=== PATIENT | male | born 1960 | race Caucasian/White ===

== ENCOUNTER 2020-07-06 13:42 | Emergency (ER) | payer OTHER, SELFPAY ==
[2020-07-06] VITALS (32 sets, daily range): BP systolic 107–161; BP diastolic 68–105; PULSE 60–77; RESP 12–25; TEMP 36.2; O2SAT 98–100
--- NOTE | ~2020-07-06 | CT_ITS ---
EXAMINATION: CT brain wo con DATE: 07/06/2020 14:39 INDICATION: Headache. TECHNIQUE: Computed tomography (CT) of the head was performed without intravenous contrast. The mA wa s adjusted according to patient size. Iterative reconstruction technique was employed. The dose-lengt h product was 605.33 mGy-cm. COMPARISON: None FINDINGS: There is old infarct involving left frontoparietal occipital region. There is no intracrani al hemorrhage, acute infarction, or abnormal intracranial mass lesion. There are old lacunar infarcts in right thalamus. The ventricles are normal in size. There is mild mucosal thickening in the parana radha sinuses. The mastoid air cells are normal. The orbits are normal. IMPRESSION: 1. Old infarct involving the left frontoparietal occipital region. Old lacunar infarcts in right thal amus. Reviewed, dictated and finalized at location A. IMPRESSION: 1. Old infarct involving the left frontoparietal occipital region. Old lacunar infarcts in right thalamus.
--- NOTE | 2020-07-06 14:04 | ECG_ITS ---
Measurements Intervals [place] Rate: 65 P: 41 NE: 192 QRS: -22 QRSD: 101 T: 33 QT: 399 QTc: 415 Interpretive Statements SINUS RHYTHM BORDERLINE T WAVE ABNORMALITY- DIFFUSE LEADS BASELINE ARTIFACT- I, II, III, AVR, AVL, V3 BORDERLINE ECG Electronically Signed On 07-06-2020 15:14:57 CDT by Jose Guadalupe Batista D.O.
--- NOTE | 2020-07-06 14:26 | ED.HA ---
HPI - Headache General Chief Complaint: Headache Stated Complaint: sudden onset nichols Time Seen by Provider: 07/06/20 13:51 Source: patient Mode of arrival: ambulatory Limitations: no limitations History of Present Illness HPI Narrative: Patient is a 60-year-old male complaining of headache, throbbing, 8 out of 10, nonradiating accompanied by blurred vision, nausea, vomiting and dizziness that started proxy 1 hour prior to arrival. Patient denies any speech disturbance, focal weakness or numbness, neck stiffness or pain, chest pain, shortness of breath, abdominal pain, fever or chills. Related Data Home Medications Medication Instructions Recorded Confirmed levetiracetam [Keppra XR] 750 mg PO HS 07/06/20 rosuvastatin [Crestor] 10 mg PO HS 07/06/20 Allergies Allergy/AdvReac Type Severity Reaction Status Date / Time No Known Allergies Allergy Verified 07/06/20 14:00 Review of Systems Review of Systems: All systems reviewed & are unremarkable except as noted in HPI and below Constitutional: Constitutional: Denies body ache(s), Denies chills, Denies excessive sweating, Denies fatigue, Denies fever(s), Denies headache(s), Denies lethargy, Denies malaise, Denies weakness and Denies weight loss Eyes: Eyes: Denies change in vision and Denies loss of vision ENT: Denies dizziness, Denies ear discharge, Denies headache(s), Denies lip swelling, Denies epistaxis, Denies nasal congestion, Denies neck pain, Denies throat swelling and Denies tongue swelling Cardiovascular: Cardiovascular: Denies chest pain, Denies chest pain at rest, Denies chest pain with activity, Denies diaphoresis, Denies rapid heart rate, Denies edema, Denies irregular heart rhythm, Denies lightheadedness, Denies palpitations, Denies dyspnea and Denies dyspnea on exertion Respiratory: Respiratory: Denies chest congestion, Denies cough, Denies hemoptysis, Denies dyspnea and Denies dyspnea on exertion Gastrointestinal: Gastrointestinal: Denies abdominal pain, Denies melena, Denies hematochezia, Denies diarrhea and Denies hematemesis Musculoskeletal: Musculoskeletal: Denies abnormal gait, Denies deformity, Denies joint swelling, Denies limited range of motion, Denies neck pain and Denies numbness Neurologic: Denies Abnormal speech present, Denies abnormal gait, Denies confusion, Denies focal weakness, Denies loss of vision, Denies numbness, Denies Other visual disturbances, Denies Sensory deficit (Neuro) and Denies weakness Psychiatric: Psychiatric: Denies confusion, Denies depression, Denies auditory hallucinations, Denies homicidal ideation and Denies suicidal ideation Endocrine: Endocrine: Denies cold intolerance, Denies excessive sweating, Denies fatigue, Denies heat intolerance and Denies palpitations Hematologic/Lymphatic: Hematologic/Lymphatic: Denies easy bleeding and Denies easy bruising Allergic/Immunologic: Allergic/Immunologic: Denies lip swelling, Denies throat swelling and Denies tongue swelling PMFSH Past Medical History Medical History Colon polyps 01/10/2020 new patient had colonoscopy 1 year ago HTN (hypertension) Pacemaker Stroke Surgical History Surgical History Hx of cholecystectomy Family History Family History Mother Hypertension Diabetes mellitus Pancreatic cancer Father History of heart bypass surgery Hypertension Cerebrovascular accident Grandparent Hiatal hernia Hypertension Heart disease Diabetes mellitus Sibling Rheumatoid arthritis Social History Social History Smoking status: Former smoker Tobacco type: cigarettes Alcohol intake: never Substance use: never Gender identity (if verbalized by the patient): Male Exam Const: General: cooperative, healthy ap
[2020-07-06] MEDS: METOCLOPRAMIDE HCL INJ 10 MG/2 ML VIAL IV PUSH (14:58)
[2020-07-06] MEDS: diphenhydrAMINE HCl INJ 50 MG/ML VIAL 25 MG IV PUSH (14:58)
[2020-07-06] MEDS: SODIUM CHLORIDE 0.9% IV 1,000 ML 999 ML IV CONT (14:58)
[2020-07-06 15:24] LABS: Basophils Percent Auto 0.4 % (0.2-1.2); Eosinophils Percent Auto 0.4 % (0-4.4); Hematocrit 44.7 % (42.0-52.0); Hemoglobin 15.3 g/dL (14.0-18.0); Immature Granulocyte Absolute 0.05 K/mm3 (0.00-0.031); Immature Granulocyte Percent A 0.5 % (0-0.5); Immature Platelet Fraction Pct 8.3 % (0.9-11.2); Lymphocytes Percent Auto 18.8 % (18.3-44.2); Mean Corpuscular HGB Conc 34.2 g/dl (32-36); Mean Corpuscular Hemoglobin 30.9 pg (26-34); Mean Corpuscular Volume 90.3 fl (80-100); Mean Platelet Volume 11.4 fl (7.4-10.4); Monocytes Absolute Auto 0.5 K/mm3 (0.1-0.6); Monocytes Percent Auto 4.6 % (2.6-8.5); Neutrophils Percent Auto 75.3 % (45.5-73.1); Platelet Count Result 122 k/mm3 (150-375); Red Blood Count 4.95 M/mm3 (4.6-6.20); Red Cell Distribution Width 13.6 % (11.5-14.5); White Blood Count 10.6 K/mm3 (4.5-10.0)
[2020-07-06 17:23] LABS: Alanine Aminotransferase 33 U/L (4-50); Albumin Level 4.8 g/dL (3.5-5.1); Alkaline Phosphatase 76 U/L (38-126); Anion Gap 8 mmol/L (8-16); Aspartate Amino Transferase 60 U/L (17-59); Bilirubin,Total 0.6 mg/dL (0.2-1.3); Blood Urea Nitrogen 18 mg/dL (9-20); Calcium 9.3 mg/dL (8.4-10.2); Carbon Dioxide 27 mmol/L (22-30); Chloride 105 mmol/L (98-107); Estimated CRCL calculation 80 ml/min; Estimated Glomerular Filt Rate > 60; Glucose 115 mg/dL (75-110); Lipase 38 U/L (23-300); Potassium 3.8 mmol/L (3.4-5.0); Sodium 140 mmol/L (137-145)
[2020-07-06 17:33] LABS: Troponin I < 0.012 ng/mL (0.000-0.034)
[2020-07-06] MEDS: KETOROLAC 15 MG/ML VIAL (*BKC) IV PUSH (17:45)
== END 2020-07-06 19:24 | disposition home or self-care (01) ==
PROVIDERS: Emergency Provider Emergency Medicine; PCP Family Medicine
DX: G45.9 Transient cerebral ischemic attack, unspecified (principal); I10 Essential (primary) hypertension; Z86.73 Personal history of transient ischemic attack (TIA), and cerebral infarction without residual deficits; Z87.891 Personal history of nicotine dependence; Z95.0 Presence of cardiac pacemaker; Z86.010 Personal history of colon polyps; R94.31 Abnormal electrocardiogram [ECG] [EKG]
CPT/HCPCS: 36415; 70450; 80053; 83690; 84484; 85025; 85055; 93005; 96361; 96374; 96375; 99284; J1200; J1885; J2765; J7030

== ENCOUNTER 2021-01-30 14:46 | Outpatient (CLI) | payer OTHER, SELFPAY ==
[2021-01-30 18:12] LABS: Hematocrit 45.8 % (42.0-52.0); Hemoglobin 15.5 g/dL (14.0-18.0); Mean Corpuscular HGB Conc 33.8 g/dl (32-36); Mean Corpuscular Hemoglobin 30.3 pg (26-34); Mean Corpuscular Volume 89.5 fl (80-100); Mean Platelet Volume 11.7 fl (7.4-10.4); Platelet Count Result 136 k/mm3 (150-375); Red Blood Count 5.12 M/mm3 (4.6-6.20); Red Cell Distribution Width 13.2 % (11.5-14.5); White Blood Count 6.4 K/mm3 (4.5-10.0)
[2021-01-30 18:22] LABS: Alanine Aminotransferase 24 U/L (4-50); Albumin Level 4.5 g/dL (3.5-5.1); Alkaline Phosphatase 82 U/L (38-126); Anion Gap 11 mmol/L (8-16); Aspartate Amino Transferase 27 U/L (17-59); Bilirubin,Total 0.7 mg/dL (0.2-1.3); Blood Urea Nitrogen 16 mg/dL (9-20); Calcium 9.2 mg/dL (8.4-10.2); Carbon Dioxide 26 mmol/L (22-30); Chloride 107 mmol/L (98-107); Cholesterol 216 mg/dL (0-200); Estimated Glomerular Filt Rate > 60; Glucose 93 mg/dL (65-110); HDL Direct 35 mg/dL; Potassium 4.1 mmol/L (3.4-5.0); Sodium 144 mmol/L (137-145); Triglycerides 199 mg/dL (<150)
[2021-01-30 18:33] LABS: LDL Cholesterol Direct 140 mg/dL
[2021-01-30 18:50] LABS: Prostate Specific Antigen 1.1 ng/mL (< OR = 4.0)
[2021-01-30 19:25] LABS: Hemoglobin A1C 5.6 % (<5.7)
== END 2021-01-30 14:47 | disposition home or self-care (01) ==
PROVIDERS: PCP Family Medicine; Visit Provider Family Medicine
DX: I63.9 Cerebral infarction, unspecified (principal); E78.5 Hyperlipidemia, unspecified; I10 Essential (primary) hypertension; I73.9 Peripheral vascular disease, unspecified; Z95.0 Presence of cardiac pacemaker; R73.09 Other abnormal glucose; Z12.5 Encounter for screening for malignant neoplasm of prostate
CPT/HCPCS: 36415; 80053; 80061; 83036; 84153; 85027; G0103